=== PATIENT | female | born 1960 | race Caucasian/White ===

== ENCOUNTER 2020-11-15 06:01 | Inpatient (IN) | payer BC ==
[~2020-11-15] VITALS: Ht 177.8 cm; Wt 113.6 kg
[2020-11-15] VITALS (15 sets, daily range): BP systolic 104–129; BP diastolic 54–74
[2020-11-15] MEDS ORDERED: CefTRIAXone 2gm/D5W 50ml BAG 50 ML IV ONE (06:35)
[2020-11-15] MEDS ORDERED: morphine 4 MG/ML inj SYRINge IV ONE (06:35)
[2020-11-15] MEDS ORDERED: normal saline 1000ML IV soln IVB ONE ×2 (06:35→07:50)
[2020-11-15] MEDS ORDERED: ondansetron/PF 4mg/2ml inj IV ONE (06:35)
--- NOTE | 2020-11-15 07:02 | NUR ---
To CT at this time via [employer].
[2020-11-15 07:16] LABS: BASOPHILS % (AUTO) 0.2 % (0-1); EOSINOPHILS % (AUTO) 0.2 % (0-6); HEMATOCRIT 43.8 % (35.0-45.0); HEMOGLOBIN 14.6 g/dl (12.0-16.0); LYMPHOCYTES # (AUTO) 0.2 X10'3 (1.1-4.8); LYMPHOCYTES % (AUTO) 2.4 % (21-51); MEAN CORPUSCULAR HEMOGLOBIN 29.8 PG (27.0-31.0); MEAN CORPUSCULAR HGB CONC 33.4 g/dL (33.0-36.5); MEAN CORPUSCULAR VOLUME 89.3 FL (78-98); MONOCYTES # (AUTO) 0.1 X10'3 (0-0.9); MONOCYTES % (AUTO) 1.3 % (2-12); NEUTROPHILS # (AUTO) 9.7 X10'3 (1.8-7.7); NEUTROPHILS % (AUTO) 95.9 % (42-75); PLATELET COUNT 199 X10'3 (140-440); RED CELL DISTRIBUTION WIDTH 14.6 % (11.5-14.5); WHITE BLOOD COUNT 10.1 X10'3 (4.5-11.0)
[2020-11-15 07:46] LABS: CLARITY,URINE SLIGHTLY CLOUDY (Clear); COLOR,URINE YELLOW (Yellow); GLUCOSE, URINE NEGATIVE (Neg); KETONES,URINE 15 mg/dl (Neg); LEUKOCYTE ESTERASE ,URINE SMALL (Neg); NITRITES, URINE POSITIVE (Neg); OCCULT BLOOD,URINE LARGE (Neg); PH,URINE 5.5 (4.8-8.0); PROTEIN,URINE 100 mg/dl (Neg)
[2020-11-15 07:51] LABS: ALANINE AMINOTRANSFERASE 65 U/L (12-78); ALBUMIN 3.5 G/DL (3.4-5.0); ALKALINE PHOSPHATASE 112 IU/L (46-116); ANION GAP 16 (8-16); ASPARTATE AMINO TRANSFERASE 42 U/L (10-37); BILIRUBIN,TOTAL 1.2 MG/DL (0.1-1.0); BLOOD UREA NITROGEN 16 MG/DL (7-18); BUN/CREATININE RATIO 14.7 (6.6-38.0); CALCIUM 8.8 MG/DL (8.5-10.1); CHLORIDE 103 MMOL/L (99-107); CREATININE 1.09 MG/DL (0.40-0.90); GLUCOSE 220 MG/DL (70-104); SODIUM 137 MMOL/L (135-145); TOTAL CARBON DIOXIDE 18.2 MMOL/L (24-32); TOTAL PROTEIN 7.1 G/DL (6.4-8.2); eGFR 51 ML/MIN
[2020-11-15 07:55] LABS: UA COLLECTION TYPE CLN CATCH MIDSTREAM
[2020-11-15 07:58] LABS: BACTERIA,URINE 3+ /HPF (Neg); MUCUS STRANDS FEW /LPF (Neg); RBC,URINE 50-100 /HPF (0-2); SQUAMOUS EPITHELIAL CELL,UR MANY /LPF (FEW); WBC CLUMPS,URINE FEW /HPF (NEGATIVE); WBC,URINE 50-100 /HPF (0-4)
[2020-11-15] MEDS ORDERED: NO HOME MEDS (08:12)
[2020-11-15] MEDS ORDERED: magnesium 4gm in 100ml NS 100 ML IV PRN (08:20)
[2020-11-15] MEDS ORDERED: HYDROcodone/acetaminophen 10/325mg tab PO PRN (08:20)
[2020-11-15] MEDS ORDERED: potassium Cl 40MEQ/1/2NS 520ml 520 ML IV PRN ×2 (08:20)
[2020-11-15] MEDS ORDERED: magnesium 2GM in 50ml NS 50 ML IV PRN (08:20)
[2020-11-15] MEDS ORDERED: metoclopramide 5 mg/ml inj IV PRN (08:20)
[2020-11-15] MEDS ORDERED: magnesium hydroxide 30ml (MOM) UD suspension PO PRN (08:20)
[2020-11-15] MEDS ORDERED: bisacodyl 10mg suppository rectal RC PRN (08:20)
[2020-11-15] MEDS ORDERED: magnesium Cl slow-release 64mg tablet PO PRN (08:20)
[2020-11-15] MEDS ORDERED: potassium Cl 20 mEq SR tablet PO PRN ×2 (08:20)
[2020-11-15] MEDS ORDERED: acetaminophen 325mg tablet PO PRN ×2 (08:20)
[2020-11-15] MEDS ORDERED: acetaminophen 650mg rectal suppository RC PRN (08:20)
[2020-11-15] MEDS ORDERED: HYDROcodone/acetaminophen 5mg/325mg tablet PO PRN (08:20)
[2020-11-15] MEDS: vancomycin/NS 1 GM ADD-VANTAGE 250 ML X 1 DOSE IV SCH ×3 (08:47→21:26)
[2020-11-15] MEDS: normal saline 1000ml 1,000 ML IV SCH ×2 (08:48→21:26)
[2020-11-15 08:58] LABS: PARTIAL THROMBOPLASTIN TIME 31 SECONDS (22-32)
--- NOTE | 2020-11-15 10:40 | NUR ---
REPORT FROM LEYDA RN, ED, ADMIT PENDING.
[2020-11-15] MEDS: ondansetron/PF 4mg/2ml inj IV PRN ×2 (11:32→21:27)
[2020-11-15] MEDS: HYDROmorphone inj. 0.5 MG/0.5 ML DISP.SYRIN IV PRN ×2 (13:43→21:26)
--- NOTE | 2020-11-15 16:03 | NUR ---
Pt and pt would like to speak with Dr Rose. Advised that the Dr will speak to them when pt is brought down to the OR. They will explain the procedure. Pt verbalized understanding. Pt known the [facility] CNO and called him. CNO called [facility] and spoke with charge - CNO advising we contact Dr Rose to contact pt. Called Dr Hoyos office - advised of above. is in surgery at the moment and will be given the message once done. Advised pt and pt spouse.
--- NOTE | 2020-11-15 16:47 | NUR ---
Spoke with Dr Rose - he will be happy to speak with , he will explain procedure and go over all information with and pt once down in PACU. Pt to accompany pt to PACU once they come get her. Called pt's to advise x 5 times. No answer.
--- NOTE | 2020-11-15 16:51 | NUR ---
Called report to Andre in recovery.
--- NOTE | 2020-11-15 17:12 | NUR ---
Pt picked up 3 rings and 1 necklace and took home.
[2020-11-15] MEDS ORDERED: iohexol 300 MG/1 ML 50ml polymer ONE (17:14)
[2020-11-15] MEDS ORDERED: ondansetron/PF 4mg/2ml inj IV PRN (17:15)
[2020-11-15] MEDS ORDERED: proCHLORperazine 10 MG/2 ml inj IV PRN (17:15)
[2020-11-15] MEDS ORDERED: ringers solution, lacted 1,000 ML IV SCH (17:15)
[2020-11-15] MEDS ORDERED: meperidine/PF 25mg/ml syringe IV PRN ×3 (17:15)
[2020-11-15] MEDS ORDERED: morphine 4 MG/ML inj SYRINge IV PRN (17:15)
[2020-11-15] MEDS ORDERED: morphine 2 MG/ML inj. syringe IV PRN (17:15)
[2020-11-15] MEDS ORDERED: fentaNYL/PF 50MCG/1 ML 2ML syringe ONE (17:20)
[2020-11-15] MEDS ORDERED: midazolam 1 mg/ML 2ml injection ONE (17:21)
[2020-11-15] MEDS ORDERED: propofol inj 20 ML IV ONE (17:23)
[2020-11-15] MEDS ORDERED: succinylcholine 20mg/ml inj IV ONE (17:23)
[2020-11-15] MEDS ORDERED: LIDOcaine 2% (20mg/ml) 5ml vial ONE (17:23)
[2020-11-15] MEDS ORDERED: dexamethasone sod phosphate 4mg/ml inj. ONE (18:28)
[2020-11-15] MEDS ORDERED: ePHEDrine 50MG/ML INJ. ONE (18:28)
--- NOTE | 2020-11-15 18:37 | NUR ---
Problems reprioritized. Patient report given, questions answered & plan of care reviewed with GILL Zhang.
--- NOTE | 2020-11-15 18:37 | NUR ---
Orientee documentation: I have reviewed and agree with all interventions, assessments performed and documented by GILL Gomez.
--- NOTE | 2020-11-15 18:59 | NUR ---
Report called to receiving nurse. Transferred via [employer] [employer]ongings . Special Issues communicated to receiving nurse. AWAKE AND ORIENTED. VITALS STABLE. STATES PAIN IMPROVING. TO ORTHO RM 4012B AT THIS TIME.
[2020-11-15] MEDS: K and/or MAG REPLACEMENT MC SCH (20:00)
[2020-11-15] MEDS ORDERED: temazepam 15mg capsule PO PRN (21:00)
[2020-11-16] VITALS (7 sets, daily range): BP systolic 128–159; BP diastolic 69–91
[2020-11-16] MEDS: normal saline 1000ml 1,000 ML IV SCH ×4 (00:20→19:31)
[2020-11-16 06:33] LABS: BASOPHILS % (AUTO) 0.1 % (0-1); EOSINOPHILS % (AUTO) 0 % (0-6); HEMATOCRIT 37.4 % (35.0-45.0); HEMOGLOBIN 12.2 g/dl (12.0-16.0); LYMPHOCYTES # (AUTO) 0.4 X10'3 (1.1-4.8); LYMPHOCYTES % (AUTO) 2.7 % (21-51); MEAN CORPUSCULAR HEMOGLOBIN 29.4 PG (27.0-31.0); MEAN CORPUSCULAR HGB CONC 32.6 g/dL (33.0-36.5); MEAN PLATELET VOLUME 9.8 FL (7.4-10.4); MONOCYTES # (AUTO) 0.6 X10'3 (0-0.9); MONOCYTES % (AUTO) 4.1 % (2-12); NEUTROPHILS # (AUTO) 14.4 X10'3 (1.8-7.7); NEUTROPHILS % (AUTO) 93.1 % (42-75); PLATELET COUNT 155 X10'3 (140-440); RED BLOOD COUNT 4.15 X10'6 (4.20-5.60); RED CELL DISTRIBUTION WIDTH 14.6 % (11.5-14.5); WHITE BLOOD COUNT 15.5 X10'3 (4.5-11.0)
--- NOTE | 2020-11-16 06:34 | NUR ---
Patient in room ORTHO 4012. I have received report from GILL Zhang and had the opportunity to ask questions and assume patient care.
[2020-11-16 06:51] LABS: ALANINE AMINOTRANSFERASE 56 U/L (12-78); ALBUMIN 2.7 G/DL (3.4-5.0); ALBUMIN/GLOBULIN RATIO 0.8 (1.1-1.5); ALKALINE PHOSPHATASE 88 IU/L (46-116); ANION GAP 8 (8-16); ASPARTATE AMINO TRANSFERASE 33 U/L (10-37); BILIRUBIN,TOTAL 0.3 MG/DL (0.1-1.0); BLOOD UREA NITROGEN 14 MG/DL (7-18); BUN/CREATININE RATIO 17.7 (6.6-38.0); CALCIUM 8.4 MG/DL (8.5-10.1); CHLORIDE 109 MMOL/L (99-107); CREATININE 0.79 MG/DL (0.40-0.90); GLUCOSE 159 MG/DL (70-104); POTASSIUM 4.8 MMOL/L (3.5-5.1); SODIUM 141 MMOL/L (135-145); TOTAL CARBON DIOXIDE 24.3 MMOL/L (24-32); TOTAL PROTEIN 6.1 G/DL (6.4-8.2); eGFR 74 ML/MIN
[2020-11-16] MEDS: HYDROmorphone inj. 0.5 MG/0.5 ML DISP.SYRIN IV PRN ×3 (07:07→16:47)
[2020-11-16] MEDS: vancomycin/NS 1 GM ADD-VANTAGE 250 ML X 1 DOSE IV SCH ×2 (07:08→21:40)
[2020-11-16] MEDS: ondansetron/PF 4mg/2ml inj IV PRN ×2 (07:08→21:42)
[2020-11-16] MEDS: CefTRIAXone/D5W-Rocephin 1gm 50 ML IV SCH (07:08)
[2020-11-16] MEDS: K and/or MAG REPLACEMENT MC SCH ×2 (08:00→20:00)
[2020-11-16] MEDS ORDERED: acetaminophen 325mg tablet PO PRN (10:55)
[2020-11-16] MEDS: mag hydrox/Alum hydrox/simeth 30ml oral suspension PO PRN (11:56)
--- NOTE | 2020-11-16 18:28 | NUR ---
Problems reprioritized. Patient report given, questions answered & plan of care reviewed with GILL Blue.
--- NOTE | 2020-11-16 19:07 | NUR ---
Patient in room ORTHO 4012. I have received report from Mary GARLAND and had the opportunity to ask questions and assume patient care.
[2020-11-16] MEDS ORDERED: VANCOMYCIN LEVEL IV ONE (20:30)
[2020-11-16] MEDS: lactobacillus rhamnosus 10,000 MMU CELLS/CAPSULE PO SCH (21:40)
[2020-11-17] MEDS: normal saline 1000ml 1,000 ML IV SCH (04:15)
--- NOTE | 2020-11-17 06:40 | NUR ---
Patient in room ORTHO 4012. I have received report from Michaela GARLAND and had the opportunity to ask questions and assume patient care.
--- NOTE | 2020-11-17 06:46 | NUR ---
Problems reprioritized. Patient report given, questions answered & plan of care reviewed with Payal GARLAND.
[2020-11-17 07:00] VITALS: BP_SYST 138; BP_SYST 158; BP_DIAS 67; BP_DIAS 87
[2020-11-17 07:30] LABS: BASOPHILS % (AUTO) 0.3 % (0-1); EOSINOPHILS # (AUTO) 0.1 X10'3 (0-0.9); EOSINOPHILS % (AUTO) 0.8 % (0-6); HEMATOCRIT 35.7 % (35.0-45.0); HEMOGLOBIN 11.7 g/dl (12.0-16.0); LYMPHOCYTES # (AUTO) 1.2 X10'3 (1.1-4.8); LYMPHOCYTES % (AUTO) 10.5 % (21-51); MEAN CORPUSCULAR HEMOGLOBIN 29.3 PG (27.0-31.0); MEAN CORPUSCULAR HGB CONC 32.7 g/dL (33.0-36.5); MEAN CORPUSCULAR VOLUME 89.5 FL (78-98); MEAN PLATELET VOLUME 10.3 FL (7.4-10.4); MONOCYTES # (AUTO) 0.8 X10'3 (0-0.9); NEUTROPHILS # (AUTO) 9.2 X10'3 (1.8-7.7); NEUTROPHILS % (AUTO) 81.4 % (42-75); PLATELET COUNT 162 X10'3 (140-440); RED BLOOD COUNT 3.99 X10'6 (4.20-5.60); RED CELL DISTRIBUTION WIDTH 14.6 % (11.5-14.5); WHITE BLOOD COUNT 11.3 X10'3 (4.5-11.0)
[2020-11-17] MEDS: CefTRIAXone/D5W-Rocephin 1gm 50 ML IV SCH (07:46)
[2020-11-17] MEDS: lactobacillus rhamnosus 10,000 MMU CELLS/CAPSULE PO SCH (07:46)
[2020-11-17] MEDS: HYDROmorphone inj. 0.5 MG/0.5 ML DISP.SYRIN IV PRN (07:46)
[2020-11-17] MEDS: K and/or MAG REPLACEMENT MC SCH (08:00)
[2020-11-17 08:16] LABS: ALANINE AMINOTRANSFERASE 46 U/L (12-78); ALBUMIN 2.7 G/DL (3.4-5.0); ALBUMIN/GLOBULIN RATIO 0.8 (1.1-1.5); ALKALINE PHOSPHATASE 82 IU/L (46-116); ANION GAP 10 (8-16); ASPARTATE AMINO TRANSFERASE 23 U/L (10-37); BILIRUBIN,TOTAL 0.3 MG/DL (0.1-1.0); BLOOD UREA NITROGEN 10 MG/DL (7-18); BUN/CREATININE RATIO 13.5 (6.6-38.0); CALCIUM 8.2 MG/DL (8.5-10.1); CHLORIDE 109 MMOL/L (99-107); CREATININE 0.74 MG/DL (0.40-0.90); GLUCOSE 105 MG/DL (70-104); POTASSIUM 4.1 MMOL/L (3.5-5.1); SODIUM 143 MMOL/L (135-145); TOTAL CARBON DIOXIDE 24.5 MMOL/L (24-32); eGFR 80 ML/MIN
[2020-11-17] MEDS ORDERED: VANCOmycin 1250MG/NS 250ml Bag 250 ML IV SCH (09:00)
[2020-11-17 10:00] VITALS: BP 141/73
--- NOTE | 2020-11-17 10:54 | NUR ---
Patient's stated that her peripheral IV on the left hand is sore, the left hand slightly swollen at this time. I told patient that she need another IV, she was reluctant when I told her about this. I applied warm blanket around her left hand for comfort. She asked me if I am really good at inserting an IV, I told her I will try. She requesting someone who is really good at IV insertion. I will ask my charge nurse Stanley to see if can put an IV for me.
[2020-11-17] MEDS ORDERED: benzonatate 100mg capsule PO PRN ×2 (11:40→11:50)
[2020-11-17] MEDS ORDERED: CIPR-259 PO (11:50)
[2020-11-17] MEDS ORDERED: BENZ-16 PO (11:50)
[2020-11-17] MEDS ORDERED: IBUP-1985 PO (11:52)
[2020-11-17] MEDS ORDERED: ACET-1008 PO (11:52)
[2020-11-17] MEDS: mag hydrox/Alum hydrox/simeth 30ml oral suspension PO PRN (11:54)
--- NOTE | 2020-11-17 12:44 | NUR ---
Discharge instructions given to patient, patient verbalized understanding of all instructions made. Peripheral IV catheter removed, tip intact. Instructed patient to ensure she has all her belongings with her before leaving the hospital.
[2020-11-18] MEDS ORDERED: VANCOMYCIN LEVEL IV ONE (20:30)
== END 2020-11-17 13:02 | disposition home or self-care (01) | DRG 854 ==
LOC: ER 06:02 → ED HOLD 08:20 → EDBEDREQ 10:35 → ORTHO 4S 10:55
PROVIDERS: ADMIT Family Medicine; ATTEND Family Medicine
PROC: 0T778DZ Dilation of Left Ureter with Intraluminal Device, Via Natural or Artificial Opening Endoscopic (ICD-10-PCS; principal; 2020-11-15 17:25)
DX: A41.9 Sepsis, unspecified organism (principal); N17.9 Acute kidney failure, unspecified; N20.2 Calculus of kidney with calculus of ureter; N12 Tubulo-interstitial nephritis, not specified as acute or chronic; K80.20 Calculus of gallbladder without cholecystitis without obstruction; Z88.8 Allergy status to other drugs, medicaments and biological substances; Z88.2 Allergy status to sulfonamides; R74.01 Elevation of levels of liver transaminase levels; Z87.442 Personal history of urinary calculi; R65.20 Severe sepsis without septic shock; Z20.822 Contact with and (suspected) exposure to COVID-19
CPT/HCPCS: 96361; 96365; 96375; 99291; Z7506; 36415; 71045; 74176; 76000; 80053; 80202; 81001; 83605; 83735; 84145; 85025; 85610; 85730; 87040; 87081; 87635; 93005; A4618; C1769; C2617; G0378; J0330; J0696; J1100; J1170; J2001; J2175; J2250; J2270; J2405; J2704; J3010; J3370; J7030; Q9967